=== PATIENT | male | born 1985 | race Caucasian/White ===

== ENCOUNTER 2017-08-26 16:22 | Inpatient (IN) ==
[2017-08-26] MEDS ORDERED: 0.9 % Sodium Chloride 1,000 ML IVC ONE ×2 (17:10→17:48)
[2017-08-26 17:11] LABS: Basophils # 0.1 K/mcL (0.0-0.2); Basophils % 0.6 %; Eosinophils # 0.1 K/mcL (0.0-0.6); Eosinophils % 1.6 %; Hematocrit 44.2 % (37.5-50.1); Hemoglobin 15.7 g/dL (12.9-16.9); Immature Granulocytes % 0.3 % (0-4); Lymphocytes # 2.4 K/mcL (0.6-4.6); Lymphocytes % 26.8 %; Mean Corpuscular HGB Conc 35.5 g/dL (31.6-35.5); Mean Corpuscular Hemoglobin 29.8 pg (28.0-33.3); Mean Platelet Volume 10.4 fL (9.4-12.4); Monocytes # 0.4 K/mcL (0.0-1.3); Monocytes % 4.1 %; Neutrophils # 5.9 K/mcL (1.6-8.9); Platelet Count 317 K/mcL (140-400); Red Blood Count 5.26 M/mcL (4.19-5.50); Red Cell Distribution Width 12.3 % (11.5-14.5); Segmented Neutrophils % 66.6 %
[2017-08-26 17:18] LABS: VBG HCO3 29 mEq/L (21-27); VBG PCO2 45 mmHg (41-51); VBG PH 7.41 pH Units (7.32-7.42); VBG PO2 53 mmHg (25-50)
[2017-08-26 17:23] LABS: BUN/Creatinine Ratio 9 (6-26); Blood Urea Nitrogen 11 mg/dL (8-26); Calcium 9.7 mg/dL (8.6-10.8); Carbon Dioxide 13 mEq/L (19-29); Chloride 90 mEq/L (98-109); Osmolality,Calculated 293 (280-300); Potassium 4.4 mEq/L (3.5-4.5); Sodium 129 mEq/L (136-145); eGFR For African Americans > 60 (> 60); eGFR For Non-African Americans > 60 (> 60)
[2017-08-26 17:26] LABS: Glucose 565 mg/dL (70-99)
[2017-08-26 17:36] LABS: Beta-Hydroxybutyric Acid 0.29 mmol/L (0.02-0.27)
--- NOTE | 2017-08-26 17:54 | Emergency Department Note ---
Disposition Clinical Impression: DKA (diabetic ketoacidoses) Qualifiers: Diabetes mellitus type: type 2 Diabetes mellitus complication detail: without coma Qualified Code(s): E11.10 - Type 2 diabetes mellitus with ketoacidosis without coma Disposition: Admitted As Inpatient Condition: Fair Time of Disposition: 18:43 General Adult HPI - General Chief complaint: ED General Medical Stated complaint: Hyperglycemia Time Seen by Provider: 08/26/17 16:52 Source: patient Mode of arrival: ambulatory Limitations: no limitations Nursing Notes Reviewed: Yes Vital Signs Reviewed: Yes - History of Present Illness HPI Narrative: 32-year-old male presents to the ED complaining of high blood sugar. Patient states he was diagnosed with prediabetes by his primary care physician and they are trying diet and weight loss for treatment. He says that this occurred approximately 2 months ago he has had no problems since then until more recently he says that he has felt a little weird in that his head feels like it spinning he has had blurry vision starting today and he has had increased level of thirst where he is drinking nonstop water for the past week. He also states that he has to urinate about every hour. 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 This is what caused him to come in. He is not having any other complaints or any preceding illnesses. He is not complaining of any nausea or vomiting, abdominal pain, chest pain, shortness of breath, headaches, back pain, neck pain, change in bowel movements, pain or tingling going down the arms or legs or any generalized numbness or fevers. Pain Scale: 0 - Related Data Home Medications Medication Instructions Recorded Confirmed Ibuprofen [Motrin] 200 mg PO Q4HR PRN 08/26/17 08/26/17 Lisinopril [Zestril] 20 mg PO DAILY 08/26/17 08/26/17 Omeprazole [PriLOSEC] 40 mg PO DAILY 08/26/17 08/26/17 Sertraline [Zoloft] 50 mg PO DAILY 08/26/17 08/26/17 Simvastatin [Zocor] 20 mg PO HS 08/26/17 08/26/17 Trazodone HCl 150 mg PO HS 08/26/17 08/26/17 hydrOXYzine HCl [Hydroxyzine HCl] 50 mg PO HS PRN 08/26/17 08/26/17 Allergies Allergy/AdvReac Type Severity Reaction Status Date / Time No Known Allergies Allergy Verified 08/26/17 16:44 Review of Systems: 10 point review of systems done and negative unless otherwise stated in history of present illness. All systems ED: reviewed and negative except as stated. Review of Systems: As Per HPI Past Medical History - Past Medical History Attestation: Yes The following information was validated with the patient. Medical history: Reports: no medical history Psychiatric history: Reports: no psych history - Social History Smoking Status: Never smoker Smokeless Tobacco Status: No Physical Exam - General Limitations: no limitations General appearance: alert, in no apparent distress - Head Head exam: atraumatic, normocephalic, normal inspection - Eye Eye exam: Present: normal appearance, PERRL, EOMI - ENT ENT exam: normal exam, normal oropharynx, mucous membranes moist - Neck Neck exam: Present: normal inspection, full ROM, trachea midline - Chest Chest inspection: Present: normal inspection, symmetric chest wall rise - Respiratory Respiratory exam: Present: normal lung sounds bilaterally - Cardiovascular Cardiovascular exam: Present: regular rate, normal rhythm, normal heart sounds - Abdominal Exam Abdominal exam: Present: soft, Non-Tender. Absent: tenderness, distention, guarding, rebound, rigidity - Extremities Exam Extremities exam: Present: normal inspection, full ROM. Absent: tenderness, pedal edema - Back Exam Back exam: Present: normal inspection, full ROM. Absent: tenderness, CVA tenderness (R), CVA tenderness (L) - Neurological Exam Neurological exam: Present: alert, oriented X3 - Skin Skin exam: Present: warm, dry, intact, normal color Course Course Narrative: 32-year-old male presents to the ED complaining of high blood sugar. He has never been diagnosed with this. He does not take any medications for diabetes. At this time we will do a DKA workup including CBC, BMP, VBG, beta hydroxybutyrate, urinalysis, EKG and troponin. We will get an IV and give him 1 L fluids until labs come back to see if he has been acting Or is acidotic. Patient most likely will be admitted. Vital Signs Temperature 97.5 F L 08/26/17 16:24 Pulse Rate 109 08/26/17 16:24 Respiratory Rate 18 08/26/17 16:24 Blood Pressure 127/79 08/26/17 16:24 O2 Sat by Pulse Oximetry 92 08/26/17 16:24 Temperature 98.4 F 08/26/17 19:36 Pulse Rate 96 08/26/17 18:07 Respiratory Rate 20 08/26/17 19:36 Blood Pressure 137/90 08/26/17 19:36 O2 Sat by Pulse Oximetry 97 08/26/17 18:07 Oxygen Delivery Oxygen Delivery Room Air Medical Decision Making - MDM Narrative Medical decision making narrative: 32 old male presents the ED complaining of high blood. Patient's labs did show an anion gap 23 was no acidosis shown on VBG that he did have a low bicarbonate. Patient is in DKA at this time. He had an elevated blood sugar of 560. Patient is not having any complaints or any other symptoms other than thirst and polyuria. Patient is alert and oriented and doing well. We will give patient 2 L of normal saline lies down here and also 0.1 unit per kilograms of an insulin drip. We will do this until his gap closes. Patient is not hypokalemic at this time there is no need to get potassium. Patient's EKG and troponin were normal. There is no acute EKG findings including T-wave abnormalities. Patient is going to be admitted for DKA I spoke with the hospitalist Juan Pierson who agreed to admit the patient to their service. Patient is admitted in stable condition. - Medical Records Medical records reviewed: Yes I reviewed the patient's medical records. - Lab Data Lab results reviewed: Yes I reviewed the patient's lab results. Result diagrams: 08/26/17 12:02 08/26/17 19:15 Lab Results 08/26/17 08/26/17 08/26/17 Range/Units 12:02 16:25 16:26 WBC 8.9 (4.3-11.1) K/mcL RBC 5.26 (4.19-5.50) M/mcL Hgb 15.7 (12.9-16.9) g/dL Hct 44.2 (37.5-50.1) % MCV 84.0 (83.0-100.0) fL MCH 29.8 (28.0-33.3) pg MCHC 35.5 (31.6-35.5) g/dL RDW 12.3 (11.5-14.5) % Plt Count 317 (140-400) K/mcL MPV 10.4 (9.4-12.4) fL Immature Gran % 0.3 (0-4) % Seg Neutrophils % 66.6 % Lymphocytes % 26.8 % Monocytes % 4.1 % Eosinophils % 1.6 % Basophils % 0.6 % Neutrophils # 5.9 (1.6-8.9) K/mcL Lymphocytes # 2.4 (0.6-4.6) K/mcL Monocytes # 0.4 (0.0-1.3) K/mcL Eosinophils # 0.1 (0.0-0.6) K/mcL Basophils # 0.1 (0.0-0.2) K/mcL VBG pH (7.32-7.42) pH Units VBG pCO2 (41-51) mmHg VBG pO2 (25-50) mmHg VBG HCO3 (21-27) mEq/L Sodium (136-145) mEq/L Potassium (3.5-4.5) mEq/L Chloride (98-109) mEq/L Carbon Dioxide (19-29) mEq/L BUN (8-26) mg/dL Creatinine (0.72-1.25) mg/dL Est GFR ( Amer) (> 60) Est GFR (Non-Af Amer) (> 60) BUN/Creatinine Ratio (6-26) Glucose (70-99) mg/dL POC Glucose > 600 H* 574 H* (58-89) Calculated Osmolality (280-300) Calcium (8.6-10.8) mg/dL Troponin I (0-0.03) ng/mL Beta-Hydroxybutyric Acd (0.02-0.27) mmol/L Urine Color (Yellow) Urine Clarity (Clear) Urine pH (5.0-8.0) pH Units Ur Specific Scott (1.010-1.025) Urine Protein (Neg-Trace) mg/dL Urine Glucose (UA) (Normal) mg/dL Urine Ketones (Negative) mg/dL Urine Blood (Negative) Urine Nitrite (Negative) Urine Bilirubin (Negative) Urine Urobilinogen (Normal) mg/dL Ur Leukocyte Esterase (Negative) Urine Microscopic RBC (0-3) per hpf Urine Microscopic WBC (0-3) per hpf Ur Squamous Epith Cells (None-Few) per lpf Urine Bacteria (None-Few) per hpf Hyaline Casts (None-Few) per lpf Ur Culture Indicated? (NO) 08/26/17 08/26/17 08/26/17 Range/Units 17:02 17:02 17:14 WBC (4.3-11.1) K/mcL RBC (4.19-5.50) M/mcL Hgb (12.9-16.9) g/dL Hct (37.5-50.1) % MCV (83.0-100.0) fL MCH (28.0-33.3) pg MCHC (31.6-35.5) g/dL RDW (11.5-14.5) % Plt Count (140-400) K/mcL MPV (9.4-12.4) fL Immature Gran % (0-4) % Seg Neutrophils % % Lymphocytes % % Monocytes % % Eosinophils % % Basophils % % Neutrophils # (1.6-8.9) K/mcL Lymphocytes # (0.6-4.6) K/mcL Monocytes # (0.0-1.3) K/mcL Eosinophils # (0.0-0.6) K/mcL Basophils # (0.0-0.2) K/mcL VBG pH 7.41 (7.32-7.42) pH Units VBG pCO2 45 (41-51) mmHg VBG pO2 53 H (25-50) mmHg VBG HCO3 29 H (21-27) mEq/L Sodium 129 L (136-145) mEq/L Potassium 4.4 (3.5-4.5) mEq/L Chloride 90 L (98-109) mEq/L Carbon Dioxide 13 L (19-29) mEq/L BUN 11 (8-26) mg/dL Creatinine 1.18 (0.72-1.25) mg/dL Est GFR ( Amer) > 60 (> 60) Est GFR (Non-Af Amer) > 60 (> 60) BUN/Creatinine Ratio 9 (6-26) Glucose 565 H* (70-99) mg/dL POC Glucose (58-89) Calculated Osmolality 293 (280-300) Calcium 9.7 (8.6-10.8) mg/dL Troponin I 0.02 (0-0.03) ng/mL Beta-Hydroxybutyric Acd 0.29 H (0.02-0.27) mmol/L Urine Color (Yellow) Urine Clarity (Clear) Urine pH (5.0-8.0) pH Units Ur Specific Scott (1.010-1.025) Urine Protein (Neg-Trace) mg/dL Urine Glucose (UA) (Normal) mg/dL Urine Ketones (Negative) mg/dL Urine Blood (Negative) Urine Nitrite (Negative) Urine Bilirubin (Negative) Urine Urobilinogen (Normal) mg/dL Ur Leukocyte Esterase (Negative) Urine Microscopic RBC (0-3) per hpf Urine Microscopic WBC (0-3) per hpf Ur Squamous Epith Cells (None-Few) per lpf Urine Bacteria (None-Few) per hpf Hyaline Casts (None-Few) per lpf Ur Culture Indicated? (NO) 08/26/17 08/26/17 Range/Units 17:43 19:15 WBC (4.3-11.1) K/mcL RBC (4.19-5.50) M/mcL Hgb (12.9-16.9) g/dL Hct (37.5-50.1) % MCV (83.0-100.0) fL MCH (28.0-33.3) pg MCHC (31.6-35.5) g/dL RDW (11.5-14.5) % Plt Count (140-400) K/mcL MPV (9.4-12.4) fL Immature Gran % (0-4) % Seg Neutrophils % % Lymphocytes % % Monocytes % % Eosinophils % % Basophils % % Neutrophils # (1.6-8.9) K/mcL Lymphocytes # (0.6-4.6) K/mcL Monocytes # (0.0-1.3) K/mcL Eosinophils # (0.0-0.6) K/mcL Basophils # (0.0-0.2) K/mcL VBG pH (7.32-7.42) pH Units VBG pCO2 (41-51) mmHg VBG pO2 (25-50) mmHg VBG HCO3 (21-27) mEq/L Sodium 131 L (136-145) mEq/L Potassium 4.1 (3.5-4.5) mEq/L Chloride 93 L (98-109) mEq/L Carbon Dioxide 18 L (19-29) mEq/L BUN 11 (8-26) mg/dL Creatinine 1.11 (0.72-1.25) mg/dL Est GFR ( Amer) > 60 (> 60) Est GFR (Non-Af Amer) > 60 (> 60) BUN/Creatinine Ratio 10 (6-26) Glucose 448 H (70-99) mg/dL POC Glucose (58-89) Calculated Osmolality 291 (280-300) Calcium 9.3 (8.6-10.8) mg/dL Troponin I (0-0.03) ng/mL Beta-Hydroxybutyric Acd (0.02-0.27) mmol/L Urine Color Yellow (Yellow) Urine Clarity Clear (Clear) Urine pH 6.0 (5.0-8.0) pH Units Ur Specific Scott > 1.030 H (1.010-1.025) Urine Protein Trace (Neg-Trace) mg/dL Urine Glucose (UA) >=1000 H (Normal) mg/dL Urine Ketones Negative (Negative) mg/dL Urine Blood Trace H (Negative) Urine Nitrite Negative (Negative) Urine Bilirubin Negative (Negative) Urine Urobilinogen Normal (Normal) mg/dL Ur Leukocyte Esterase Negative (Negative) Urine Microscopic RBC 0-3 (0-3) per hpf Urine Microscopic WBC 0-3 (0-3) per hpf Ur Squamous Epith Cells None Seen (None-Few) per lpf Urine Bacteria None Seen (None-Few) per hpf Hyaline Casts None Seen (None-Few) per lpf Ur Culture Indicated? NO (NO) - Radiology Data Radiology results reviewed: Yes I reviewed the patient's radiology results. - EKG Data EKG #1 EKG attestation: Yes I reviewed and interpreted this EKG. EKG results narrative: EKG done at 1721 shows sinus tachycardia at a rate of 107, UT interval 152 QRS 103, QTc 386, normal axis. There is a right bundle branch block no acute ST changes, no acute T-wave abnormalities, no signs of heart hypertrophy, no other heart blocks, no signs of WPW/Brugada syndrome. There is no old EKG to compare at this time. Attestation Statement - Attestation Attestation: I examined this patient and my medical decision-making was reviewed with the Resident Physician, Dr. Patel. I agree with the documented findings, disposition and treatment plan as described except to the extent set forth below. Patient is a 32-year-old white male who presents to the emergency department brought by his with reports of an elevated blood sugar. Patient does not have a history of diabetes but reports that he was diagnosed with prediabetes by his family practice doctor and recommended diet modifications and exercise. Patient states over the last 3-4 days he has been having polyuria, polydipsia, strange odor to his urine and today some blurred vision and so his who is a nurse did an Accu-Chek which just read high and she brought him here for evaluation. Patient denies any chest pain pressure or heaviness, no shortness of breath, no syncope, no headaches, no other associated symptoms. She has had no nausea or vomiting. Patient denies any recent upper respiratory infection cold or cough. Patient's physical exam findings as documented. Patient had full laboratory evaluation including beta hydroxybutyrate and VBG. Labs consistent with a gap metabolic acidosis caused by DKA and hyperglycemia. Patient was started on IV fluids, insulin drip, and repeat basic metabolic panel shows improvement from his labs on arrival. Case was discussed with the hospitalist to accept the patient for admission.
[2017-08-26 18:00] LABS: Bilirubin,Urine Negative (Negative); Blood,Urine Trace (Negative); Clarity,Urine Clear (Clear); Color,Urine Yellow (Yellow); Glucose,Urine (UA) >=1000 mg/dL (Normal); Ketones,Urine Negative (Negative); Leukocyte Esterase,Urine Negative (Negative); Nitrite,Urine Negative (Negative); Protein,Urine Trace mg/dL (Neg-Trace); Specific Gravity,Urine > 1.030 (1.010-1.025); Urobilinogen,Urine Normal (Normal)
[2017-08-26 18:18] LABS: Bacteria,Urine None Seen per hpf (None-Few); Hyaline Casts,Urine None Seen per lpf (None-Few); RBC,Urine 0-3 per hpf (0-3); Squamous Epithelial Cell,Urine None Seen per lpf (None-Few); WBC,Urine 0-3 per hpf (0-3)
[2017-08-26] MEDS: Insulin Human Regular 100 UNIT in 0.9 % Sodium Chloride 100 ML IVC SCH (19:23)
[2017-08-26 19:56] LABS: BUN/Creatinine Ratio 10 (6-26); Blood Urea Nitrogen 11 mg/dL (8-26); Calcium 9.3 mg/dL (8.6-10.8); Carbon Dioxide 18 mEq/L (19-29); Chloride 93 mEq/L (98-109); Osmolality,Calculated 291 (280-300); Potassium 4.1 mEq/L (3.5-4.5); Sodium 131 mEq/L (136-145); eGFR For African Americans > 60 (> 60); eGFR For Non-African Americans > 60 (> 60)
[2017-08-26 19:59] LABS: Glucose 448 mg/dL (70-99)
[2017-08-26] MEDS ORDERED: *HR* Dextrose 50 % in Water (Syg) 50 ML SYRINGE IVP PRN ×2 (20:15→21:12)
[2017-08-26] MEDS ORDERED: Insulin Regular, Human 100 UNIT/ML IV PRN ×2 (20:15→21:12)
[2017-08-26] MEDS ORDERED: *HR* Morphine 2 MG/ML SYRINGE IVP PRN (20:19)
[2017-08-26] MEDS ORDERED: Naloxone 0.4 MG/ML INJ IVP PRN (20:19)
[2017-08-26] MEDS ORDERED: Ondansetron 4 MG/2 ML VIAL IVP PRN (20:19)
[2017-08-26 20:55] LABS: Prothrombin Time 11.1 Seconds (9.4-12.1)
[2017-08-26] MEDS: Acetaminophen 325 MG TABLET PO PRN (21:04)
[2017-08-26] MEDS ORDERED: Insulin Human Regular 10 UNIT in 0.9 % Sodium Chloride 10 ML IV PRN (21:06)
--- NOTE | 2017-08-26 21:10 | Internal Med History&Physical ---
Date of Encounter: 08/26/17 Time of Encounter: 20:45 Assessment and Plan (1) DKA (diabetic ketoacidosis) Current visit: Yes Status: Acute Diabetic ketoacidosis without coma - likely type 1 diabetes mellitus, hyperglycemia - newly diagnosed Continue IV insulin, IV fluids Follow DKA protocol and replace electrolytes as needed Continue insulin sliding scale when anion gap is closed and DKA has resolved EKG - sinus tachycardia Cardiac telemetry, pulse ox, strict intake and output, monitor closely, labs every 2 hours until anion gap is closed Qualifiers: Diabetes mellitus type: type 1 Diabetes mellitus complication detail: without coma Qualified Code(s): E10.10 - Type 1 diabetes mellitus with ketoacidosis without coma (2) Hypertension Current visit: Yes Status: Chronic Essential hypertension, controlled, monitor Continue home dose of Zestril Qualifiers: Hypertension type: essential hypertension Qualified Code(s): I10 - Essential (primary) hypertension (3) TALON (obstructive sleep apnea) Current visit: Yes Status: Acute TALON, stable - continue CPAP at night (4) Hyperlipidemia Current visit: Yes Status: Chronic Continue home dose of Zocor Qualifiers: Hyperlipidemia type: unspecified Qualified Code(s): E78.5 - Hyperlipidemia , unspecified (5) Morbid obesity Current visit: Yes Status: Acute Morbid obesity with BMI 52.2 Advised lifestyle modification (6) Depression Current visit: Yes Status: Acute Chronic major depression, stable Continue home dose of Trazodone, Zoloft Qualifiers: Depression Type: major depressive disorder Major depression recurrence: recurrent Active/Remission status: currently active Major depression episode severity: mild Qualified Code(s): F33.0 - Major depressive disorder, recurrent, mild (7) DVT prophylaxis Current visit: Yes Status: Acute Heparin subcutaneous Internal Medicine - H&P: HPI Chief complaint: Generalized weakness Admitted From: Emergency Dept Plans for Post Hospital Care: Home History of present illness: Mr. Daiz is a 32 year old male with past medical history of depression, TALON and hyperlipidemia. Patient presented to the ED with complaints of generalized weakness. Examined in the room. Patient is awake and alert. Able to provide all history. No present bedside. Patient states he developed generalized weakness and fatigue about 2 days ago. Symptoms are gradually worsening. He also complains of more thirst and states he has been drinking more water than usual. He has been diagnosed with prediabetes recently and was advised to follow a diabetic diet and advised to exercise. Patient also complains of increased frequency of urination. He apparently checked his blood glucose today at his 's workplace, and the glucometer read as "high". Patient then decided to come into the ED. He denies chest pain or shortness of breath. Denies palpitations or vomiting or diarrhea or fever. He also complains of generalized weakness and fatigue. No aggravating or alleviating factors. No other associated symptoms. No other acute complaints. Initial workup in the ED significant for hyperglycemia. Patient does have ketonemia. Anion gap is elevated. He has been started on IV heparin as per protocol. Patient is being admitted for DKA. Patient has been explained about his condition and plan of care in detail. He understood and agreed. No unanswered questions. CODE STATUS full code. Past Med Surg Social Fam HX - Past Medical History Medical history: no medical history Psychiatric history: no psych history - Social History Smoking Status: Never smoker Smokeless Tobacco Status: No - Family History Paternal Grandmother Hx Family Cardiac Disorders: Yes (CHF) Internal Medicine - H&P: Meds Ibuprofen [Motrin] 200 mg PO Q4HR PRN 08/26/17 [History] Lisinopril [Zestril] 20 mg PO DAILY 08/26/17 [History] Omeprazole [PriLOSEC] 40 mg PO DAILY 08/26/17 [History] Sertraline [Zoloft] 50 mg PO DAILY 08/26/17 [History] Simvastatin [Zocor] 20 mg PO HS 08/26/17 [History] Trazodone HCl 150 mg PO HS 08/26/17 [History] hydrOXYzine HCl [Hydroxyzine HCl] 50 mg PO HS PRN 08/26/17 [History] 3 Allergy/AdvReac Type Severity Reaction Status Date / Time No Known Allergies Allergy Verified 08/26/17 16:44 All Systems PM: A 10-system review of systems was performed and is negative for pertinent findings except as documented above in the HPI. - Constitutional Constitutional: fatigue, weakness, no fever(s) - EENT Eyes: blurry vision - Cardiovascular Cardiovascular ROS IM: no chest pain, no diaphoresis, no dyspnea, no orthopnea, no palpitations, no syncope - Respiratory Respiratory: no cough, no dyspnea, no hemoptysis, no dyspnea on exertion, no wheezing, no chest congestion - Gastrointestinal Gastrointestinal: no abdominal pain, no bloating, no cramping, no diarrhea, no hematemesis, no hematochezia, no nausea, no vomiting - Genitourinary Genitourinary ROS male: urinary frequency, no dysuria - Neurological Neurological ROS: no abnormal gait, no confusion, no convulsions, no dizziness, no focal weakness, no loss of vision, no numbness, no tingling - Constitutional Vitals: Temp Pulse Resp BP Pulse Ox 98.2 F 99 16 144/92 94 08/26/17 20:41 08/26/17 20:41 08/26/17 20:41 08/26/17 20:41 08/26/17 20:41 General appearance: Present: cooperative, A&O X 3, morbidly obese, pleasant, no acute distress, answers questions appropriately - Head Head exam: Present: atraumatic - Eye Eye exam: Present: EOMI - ENT ENT exam: Present: mucous membranes dry - Respiratory Respiratory exam: Present: CTAB. Absent: accessory muscle use, chest wall tenderness, rales, respiratory distress, rhonchi, wheezes, tachypnea - Cardiovascular Cardiovascular exam: Present: RRR, +S1, +S2 - GI/Abdominal GI/Abdominal exam: Present: soft (Obese). Absent: distended, firm, guarding, tenderness - Extremities Exam Extremities exam: Present: pedal edema (Bilateral 2+ lower leg edema), radial pulses palpable and symmetrical. Absent: calf tenderness, cyanotic - Neurological Exam Neurological exam: Present: alert, oriented X3, no focal deficits. Absent: facial droop, speech deficit Internal Med - H&P Results - Labs CBC & Chem 7: 08/27/17 02:45 08/27/17 02:45
[2017-08-26] MEDS ORDERED: D5% in 0.45% NACL w KCl 20 MEQ/1,000 ML MLS IVC PRN (21:12)
[2017-08-26] MEDS ORDERED: D5% in 0.45% NACL 1,000 ML IVC PRN (21:12)
[2017-08-26] MEDS ORDERED: 0.9 % Sodium Chloride 1,000 ML IVC SCH (21:15)
[2017-08-26] MEDS ORDERED: Insulin Human Regular 100 UNIT in 0.9 % Sodium Chloride 100 ML IVC SCH (21:15)
[2017-08-26] MEDS ORDERED: 0.9 % Sodium Chloride 1,000 ML ONE (21:29)
[2017-08-26] MEDS ORDERED: Insulin Human Regular 5 UNIT in 0.9 % Sodium Chloride 10 ML IV PRN (21:30)
[2017-08-26] MEDS: 0.9 % Sodium Chloride w KCl 20 MEQ/1,000 ML MLS IVC SCH ×2 (21:39→23:45)
[2017-08-26 22:54] LABS: BUN/Creatinine Ratio 13 (6-26); Blood Urea Nitrogen 11 mg/dL (8-26); Calcium 8.6 mg/dL (8.6-10.8); Carbon Dioxide 14 mEq/L (19-29); Chloride 98 mEq/L (98-109); Glucose 269 mg/dL (70-99); Osmolality,Calculated 289 (280-300); Potassium 3.5 mEq/L (3.5-4.5); Sodium 135 mEq/L (136-145); eGFR For African Americans > 60 (> 60); eGFR For Non-African Americans > 60 (> 60)
[2017-08-26] MEDS ORDERED: Saline Nasal Spray 44 ML BOTTLE NS PRN (23:38)
[2017-08-26] MEDS: traZODone 50 MG TABLET PO SCH (23:46)
[2017-08-26] MEDS: *HR* Heparin 5,000 UNIT/ML VIAL SQ SCH (23:52)
[2017-08-27 00:38] LABS: BUN/Creatinine Ratio 12 (6-26); Blood Urea Nitrogen 10 mg/dL (8-26); Calcium 8.7 mg/dL (8.6-10.8); Carbon Dioxide 17 mEq/L (19-29); Chloride 101 mEq/L (98-109); Glucose 222 mg/dL (70-99); Osmolality,Calculated 284 (280-300); eGFR For African Americans > 60 (> 60); eGFR For Non-African Americans > 60 (> 60)
[2017-08-27 00:39] LABS: Potassium 3.6 mEq/L (3.5-4.5); Sodium 134 mEq/L (136-145)
[2017-08-27] MEDS: D5% in 0.45% NACL w KCl 20 MEQ/1,000 ML MLS IVC PRN ×2 (02:15→06:26)
[2017-08-27] MEDS: Insulin Human Regular 100 UNIT in 0.9 % Sodium Chloride 100 ML IVC SCH ×2 (02:48→06:39)
[2017-08-27 02:55] LABS: Basophils % 0.5 %; Eosinophils # 0.2 K/mcL (0.0-0.6); Eosinophils % 2.9 %; Hematocrit 39.3 % (37.5-50.1); Immature Granulocytes % 0.5 % (0-4); Lymphocytes # 2.9 K/mcL (0.6-4.6); Lymphocytes % 39.2 %; Mean Corpuscular HGB Conc 33.8 g/dL (31.6-35.5); Mean Corpuscular Hemoglobin 29.2 pg (28.0-33.3); Mean Corpuscular Volume 86.2 fL (83.0-100.0); Mean Platelet Volume 10.4 fL (9.4-12.4); Monocytes # 0.4 K/mcL (0.0-1.3); Monocytes % 4.9 %; Neutrophils # 3.9 K/mcL (1.6-8.9); Nucleated Red Blood Cells 0.3 /100 WBC (0); Platelet Count 247 K/mcL (140-400); Red Blood Count 4.56 M/mcL (4.19-5.50); Red Cell Distribution Width 12.6 % (11.5-14.5)
[2017-08-27 03:00] LABS: Hemoglobin 13.3 g/dL (12.9-16.9)
[2017-08-27 03:05] LABS: BUN/Creatinine Ratio 13 (6-26); Blood Urea Nitrogen 11 mg/dL (8-26); Calcium 8.3 mg/dL (8.6-10.8); Carbon Dioxide 18 mEq/L (19-29); Chloride 102 mEq/L (98-109); Glucose 195 mg/dL (70-99); Magnesium 2.3 mg/dL (1.6-2.6); Osmolality,Calculated 289 (280-300); Phosphorous 2.8 mg/dL (2.3-4.7); eGFR For African Americans > 60 (> 60); eGFR For Non-African Americans > 60 (> 60)
[2017-08-27 03:08] LABS: Hemoglobin A1C 11.3 %; Sodium 137 mEq/L (136-145)
[2017-08-27 03:09] LABS: Cholesterol 413 mg/dL (< 200); Potassium 3.4 mEq/L (3.5-4.5)
[2017-08-27 04:12] LABS: Triglycerides 2951 mg/dL (< 150)
[2017-08-27 05:15] LABS: BUN/Creatinine Ratio 15 (6-26); Blood Urea Nitrogen 12 mg/dL (8-26); Calcium 8.3 mg/dL (8.6-10.8); Carbon Dioxide 16 mEq/L (19-29); Chloride 104 mEq/L (98-109); Glucose 185 mg/dL (70-99); Lipase 33 Units/L (8-78); Osmolality,Calculated 289 (280-300); eGFR For African Americans > 60 (> 60); eGFR For Non-African Americans > 60 (> 60)
[2017-08-27 05:18] LABS: Sodium 137 mEq/L (136-145)
[2017-08-27 05:19] LABS: Potassium 3.8 mEq/L (3.5-4.5)
[2017-08-27] MEDS: 0.9 % Sodium Chloride 1,000 ML IVC SCH ×5 (07:16→08:13)
[2017-08-27 07:29] LABS: BUN/Creatinine Ratio 15 (6-26); Blood Urea Nitrogen 12 mg/dL (8-26); Calcium 8.3 mg/dL (8.6-10.8); Carbon Dioxide 13 mEq/L (19-29); Chloride 105 mEq/L (98-109); Glucose 149 mg/dL (70-99); Osmolality,Calculated 283 (280-300); Sodium 135 mEq/L (136-145); eGFR For African Americans > 60 (> 60); eGFR For Non-African Americans > 60 (> 60)
[2017-08-27] MEDS: *HR* Heparin 5,000 UNIT/ML VIAL SQ SCH ×2 (08:13→16:06)
[2017-08-27] MEDS: Acetaminophen 325 MG TABLET PO PRN (08:20)
[2017-08-27] MEDS: Lisinopril 20 MG TABLET PO SCH (09:09)
[2017-08-27] MEDS ORDERED: Insulin DETEMIR 100 UNIT/ML X5UNITS SQ ONE (09:38)
[2017-08-27] MEDS ORDERED: D5% in Water 1,000 ML IVC PRN (09:51)
[2017-08-27] MEDS ORDERED: Dextrose Gel 15 GM PO PRN ×2 (09:51)
[2017-08-27] MEDS ORDERED: *HR* Dextrose 50 % in Water (Syg) 50 ML SYRINGE IVP PRN (09:51)
--- NOTE | 2017-08-27 09:54 | Internal Med Progress Note ---
Date of Encounter: 08/27/17 Time of Encounter: 09:54 - Assessment and plan (1) DKA (diabetic ketoacidoses) Current Visit: Yes Status: Acute Assessment and plan: Pt now has closed anion gap. Insulin drip stopped and Levimir begun. SSI ordered. Pt was not on any meds for diabetes when admitted. HgbA1C greater than 11. Anticipate discharging on insulin with follow up with PCP for any changes. HCO3 still low this AM. pH was normal on VBG last night. Will recheck chemistry later today. Qualifiers: Diabetes mellitus type: type 2 Diabetes mellitus complication detail: without coma Qualified Code(s): E11.10 - Type 2 diabetes mellitus with ketoacidosis without coma (2) Hyperlipidemia Current Visit: Yes Status: Chronic Assessment and plan: Pt has cholesterol greater than 400 and triglycerides nearly 3000. No evidence of pancreatitis. Has been switched to Atorvastatin and Gemfibrozil added. Recheck of labs later today. As he does not have pancreatitis the insulin drip has been stopped as AG is now normal. Will need aggressive diet management as well as medications. Qualifiers: Hyperlipidemia type: mixed hyperlipidemia Qualified Code(s): E78.2 - Mixed hyperlipidemia (3) Cephalgia Current Visit: Yes Status: Acute Assessment and plan: Has headache in AM when waking. Most likely related to TALON. PRN Motrin helps. Qualifiers: Headache type: other headache syndrome Qualified Code(s): G44.89 - Other headache syndrome (4) Hypertension Current Visit: Yes Status: Chronic Assessment and plan: Controlled at this time. Currently on Lisinopril and tolerating it. Qualifiers: Hypertension type: essential hypertension Qualified Code(s): I10 - Essential (primary) hypertension (5) Depression Current Visit: Yes Status: Chronic Assessment and plan: Continue home meds at this time. Qualifiers: Depression Type: major depressive disorder Major depression recurrence: recurrent Active/Remission status: currently active Major depression episode severity: mild Qualified Code(s): F33.0 - Major depressive disorder, recurrent, mild (6) TALON (obstructive sleep apnea) Current Visit: Yes Status: Suspected Assessment and plan: Will do overnight bipap qualification and repeat ABG in AM. May only need CPAP so sleep study may need to be arranged. (7) Morbid obesity Current Visit: Yes Status: Chronic Assessment and plan: Counselling. - Subjective Interval history: Mr Diaz is currently admitted for acute DKA and hypertriglyceridemia. He remains moderate to high risk due to risk for recurrence of acidosis and pancreatitis. Mr Diaz has a significant headache. He says it is in the back of his head and occurs commonly when he wakes in the morning. Feels hungry now. No abd pain. No fever or chills. He was not on insulin at home. No diagnosed history of TALON though have noticed some desaturation when sleeping. No CP or SOB at this time. - Constitutional Vitals: Temp Pulse Resp BP Pulse Ox 98.0 F 81 16 138/88 98 08/27/17 07:11 08/27/17 07:11 08/27/17 07:11 08/27/17 07:11 08/27/17 07:11 General appearance: Present: cooperative, A&O X 3, morbidly obese, pleasant, answers questions appropriately - Head Head exam: Present: atraumatic, normocephalic - Eye Eye exam: Present: EOMI, conjuntiva pink - ENT ENT exam: Present: mucous membranes dry - Respiratory Respiratory exam: Present: decreased breath sounds, CTAB. Absent: rales, rhonchi, wheezes - Cardiovascular Cardiovascular exam: Present: distant heart sounds, RRR. Absent: systolic murmur, tachycardia - GI/Abdominal GI/Abdominal exam: Present: normal bowel sounds, soft. Absent: tenderness - Extremities Exam Extremities exam: Present: normal inspection, warm. Absent: pedal edema, tenderness - Neurological Exam Neurological exam: Present: alert, oriented X3, no focal deficits - Psychiatric Psychiatric exam: Present: normal affect, normal mood - Skin Skin exam: Present: dry, warm. Absent: rash Internal Medicine: Result - Labs CBC & Chem 7: 08/27/17 02:45 08/27/17 07:03 Labs: Short CBC 08/27/17 Range/Units 02:45 WBC 7.5 (4.3-11.1) K/mcL Hgb 13.3 D (12.9-16.9) g/dL Hct 39.3 (37.5-50.1) % Plt Count 247 (140-400) K/mcL Neutrophils # 3.9 (1.6-8.9) K/mcL BMP 08/26/17 08/27/17 08/27/17 22:17 00:20 02:45 Sodium 135 L 134 L 137 Potassium 3.5 3.6 3.4 L Chloride 98 101 102 Carbon Dioxide 14 L 17 L 18 L BUN 11 10 11 Creatinine 0.88 0.85 0.82 Glucose 269 H 222 H 195 H Calcium 8.6 8.7 8.3 L 08/27/17 08/27/17 04:54 07:03 Sodium 137 135 L Potassium 3.8 4.0 Chloride 104 105 Carbon Dioxide 16 L 13 L BUN 12 12 Creatinine 0.82 0.78 Glucose 185 H 149 H Calcium 8.3 L 8.3 L - ABG Interpretation ABG results: PT/INR, D-dimer PT 11.1 Seconds (9.4-12.1) 08/26/17 12:02 Consult Discharge Plan - Plan Referrals: Pattie Hunter, WALTER [Primary Care Provider] -
[2017-08-27] MEDS: Ibuprofen 400 MG TABLET PO PRN ×2 (09:58→17:44)
[2017-08-27] MEDS: Insulin LISPRO 300 UNITS/3 ML VIAL SQ SCH ×3 (11:20→20:49)
[2017-08-27 12:39] LABS: Cholesterol 379 mg/dL (< 200)
[2017-08-27 12:40] LABS: Triglycerides 2348 mg/dL (< 150)
[2017-08-27 15:12] LABS: BUN/Creatinine Ratio 13 (6-26); Blood Urea Nitrogen 11 mg/dL (8-26); Calcium 8.3 mg/dL (8.6-10.8); Carbon Dioxide 17 mEq/L (19-29); Chloride 102 mEq/L (98-109); Glucose 293 mg/dL (70-99); Osmolality,Calculated 288 (280-300); Potassium 4.3 mEq/L (3.5-4.5); Sodium 134 mEq/L (136-145); eGFR For African Americans > 60 (> 60); eGFR For Non-African Americans > 60 (> 60)
[2017-08-27] MEDS: traZODone 50 MG TABLET PO SCH (20:49)
[2017-08-28] MEDS: *HR* Heparin 5,000 UNIT/ML VIAL SQ SCH ×3 (01:23→17:13)
[2017-08-28 02:57] LABS: Hematocrit 39.8 % (37.5-50.1); Hemoglobin 13.4 g/dL (12.9-16.9); Mean Corpuscular HGB Conc 33.7 g/dL (31.6-35.5); Mean Corpuscular Hemoglobin 29.6 pg (28.0-33.3); Mean Corpuscular Volume 87.9 fL (83.0-100.0); Mean Platelet Volume 10.5 fL (9.4-12.4); Platelet Count 235 K/mcL (140-400); Red Blood Count 4.53 M/mcL (4.19-5.50); Red Cell Distribution Width 12.6 % (11.5-14.5)
[2017-08-28 03:13] LABS: Alanine Aminotransferase 47 Units/L (0-55); Albumin 3.1 g/dL (3.5-5.0); Albumin/Globulin Ratio 0.8 (1.1-2.2); Alkaline Phosphatase 82 Units/L (38-126); Aspartate Amino Transferase 32 Units/L (5-34); BUN/Creatinine Ratio 11 (6-26); Bilirubin,Total 0.3 mg/dL (0.2-1.2); Blood Urea Nitrogen 10 mg/dL (8-26); Calcium 8.7 mg/dL (8.6-10.8); Carbon Dioxide 18 mEq/L (19-29); Chloride 100 mEq/L (98-109); Globulin 3.9 g/dL (2.4-3.5); Glucose 389 mg/dL (70-99); Magnesium 2.2 mg/dL (1.6-2.6); Osmolality,Calculated 289 (280-300); Potassium 4.4 mEq/L (3.5-4.5); eGFR For African Americans > 60 (> 60); eGFR For Non-African Americans > 60 (> 60)
[2017-08-28 03:14] LABS: Sodium 132 mEq/L (136-145)
[2017-08-28] MEDS: Ibuprofen 400 MG TABLET PO PRN ×2 (04:24→18:23)
[2017-08-28 04:52] LABS: ABG Base Excess 0 mEq/L (-2 to 3); ABG HCO3 28 mEq/L (21-27); ABG Oxygen Saturation 96 % (95-98); ABG PCO2 55 mmHg (35-45); ABG PH 7.31 pH Units (7.32-7.45); ABG PO2 92 mmHg (85-104); ABG TCO2 30 mEq/L (20-26)
[2017-08-28] MEDS: Lisinopril 20 MG TABLET PO SCH (08:10)
[2017-08-28] MEDS: Insulin LISPRO 300 UNITS/3 ML VIAL SQ SCH ×4 (08:12→20:42)
--- NOTE | 2017-08-28 08:34 | Internal Med Progress Note ---
Date of Encounter: 08/28/17 Time of Encounter: 08:25 - Assessment and plan (1) DKA (diabetic ketoacidoses) Current Visit: Yes Status: Acute Assessment and plan: Blood sugar continues to fluctuate. HgbA1C over 11%. Will try to start Metformin and increase Levimir. Will monitor blood sugars again tonight and decide on a regimen for discharg tomorrow. Qualifiers: Diabetes mellitus type: type 2 Diabetes mellitus complication detail: without coma Qualified Code(s): E11.10 - Type 2 diabetes mellitus with ketoacidosis without coma (2) Hyperlipidemia Current Visit: Yes Status: Chronic Assessment and plan: Needs to have aggressive diet management. Triglycerides upper 1999. On Atorvastatin and Lopid at this time. Qualifiers: Hyperlipidemia type: mixed hyperlipidemia Qualified Code(s): E78.2 - Mixed hyperlipidemia (3) Cephalgia Current Visit: Yes Status: Resolved Assessment and plan: Has headache in AM when waking. Most likely related to TALON. Will continue PRN Motrin. Qualifiers: Headache type: other headache syndrome Qualified Code(s): G44.89 - Other headache syndrome (4) Hypertension Current Visit: Yes Status: Chronic Assessment and plan: Controlled at this time. Currently on Lisinopril and tolerating it. Qualifiers: Hypertension type: essential hypertension Qualified Code(s): I10 - Essential (primary) hypertension (5) Depression Current Visit: Yes Status: Chronic Assessment and plan: Continue home meds at this time. Qualifiers: Depression Type: major depressive disorder Major depression recurrence: recurrent Active/Remission status: currently active Major depression episode severity: mild Qualified Code(s): F33.0 - Major depressive disorder, recurrent, mild (6) TALON (obstructive sleep apnea) Current Visit: Yes Status: Suspected Assessment and plan: Has CPAP at home currently. CO2 was 55 on ABG this AM. Will discuss with case management tomorrow. (7) Morbid obesity Current Visit: Yes Status: Chronic Assessment and plan: Counselling. - Subjective Interval history: Mr Diaz is currently admitted for acute DKA and hypertriglyceridemia. He remains moderate to high risk due to risk for recurrence of acidosis and pancreatitis. Mr Diaz is currently eating breakfast. His blood sugar is still fluctuating and his bicarb is still low. No anion gap. Had study for bipap last night. No fever or chills. Headache has improved with treatment. - Constitutional Vitals: Temp Pulse Resp BP Pulse Ox 98.0 F 81 18 132/84 94 08/28/17 07:15 08/28/17 07:15 08/28/17 07:15 08/28/17 07:15 08/28/17 07:15 General appearance: Present: cooperative, A&O X 3, morbidly obese, pleasant, answers questions appropriately - Head Head exam: Present: atraumatic, normocephalic - Eye Eye exam: Present: EOMI, conjuntiva pink - ENT ENT exam: Present: mucous membranes moist - Respiratory Respiratory exam: Present: decreased breath sounds, CTAB - Cardiovascular Cardiovascular exam: Present: RRR. Absent: systolic murmur, tachycardia - GI/Abdominal GI/Abdominal exam: Present: soft. Absent: tenderness - Extremities Exam Extremities exam: Present: warm. Absent: tenderness - Neurological Exam Neurological exam: Present: alert, oriented X3, no focal deficits - Skin Skin exam: Present: dry, intact, warm. Absent: rash Internal Medicine: Result - Labs CBC & Chem 7: 08/28/17 02:41 08/28/17 02:41 Labs: Short CBC 08/28/17 Range/Units 02:41 WBC 5.9 (4.3-11.1) K/mcL Hgb 13.4 (12.9-16.9) g/dL Hct 39.8 (37.5-50.1) % Plt Count 235 (140-400) K/mcL BMP 08/27/17 08/28/17 11:58 02:41 Sodium 134 L 132 L Potassium 4.3 4.4 Chloride 102 100 Carbon Dioxide 17 L 18 L BUN 11 10 Creatinine 0.85 0.91 Glucose 293 H 389 H Calcium 8.3 L 8.7 Liver Function 08/28/17 Range/Units 02:41 Total Bilirubin 0.3 (0.2-1.2) mg/dL AST 32 (5-34) Units/L ALT 47 (0-55) Units/L Alkaline Phosphatase 82 (38-126) Units/L Albumin 3.1 L (3.5-5.0) g/dL - ABG Interpretation ABG results: ABG ABG pH 7.31 pH Units (7.32-7.45) L 08/28/17 04:49 ABG pCO2 55 mmHg (35-45) H 08/28/17 04:49 ABG pO2 92 mmHg (85-104) 08/28/17 04:49 ABG O2 Saturation 96 % (95-98) 08/28/17 04:49 PT/INR, D-dimer PT 11.1 Seconds (9.4-12.1) 08/26/17 12:02 Consult Discharge Plan - Plan Referrals: Pattie Hunter, WALTER [Primary Care Provider] -
[2017-08-28] MEDS ORDERED: Insulin DETEMIR 100 UNIT/ML X5UNITS SQ STA (08:37)
[2017-08-28] MEDS: *HR* Metformin 500 MG TABLET PO SCH (17:13)
[2017-08-28] MEDS: traZODone 50 MG TABLET PO SCH (20:41)
[2017-08-29] MEDS: *HR* Heparin 5,000 UNIT/ML VIAL SQ SCH ×4 (00:46→23:17)
--- NOTE | 2017-08-29 02:18 | Electrocardiograph Report ---
[place] [id number] Test Date: 2017-08-26 Pat Name: Bob Diaz Department: 103 Room: 2N13 Gender: M [employer]S Soccer Coach: TMR : 1985 Requested By: Everton Sanchez Order Number: [id number] Reading MD: Tyree Comer MD Measurements Intervals Krypton Rate: 107 P: 32 GA: 152 QRS: 19 QRSD: 103 T: 21 QT: 323 QTc: 386 Interpretive Statements SINUS TACHYCARDIA INDETERMINATE AXIS INCOMPLETE RIGHT BUNDLE BRANCH BLOCK Poor R wave progression Electronically Signed On 08-29-2017 2:15:50 EST by Tyree Comer MD
[2017-08-29] MEDS: Lisinopril 20 MG TABLET PO SCH (08:26)
[2017-08-29] MEDS: *HR* Metformin 500 MG TABLET PO SCH (08:26)
[2017-08-29] MEDS: Insulin LISPRO 300 UNITS/3 ML VIAL SQ SCH ×2 (08:28→11:18)
--- NOTE | 2017-08-29 08:39 | Internal Med Progress Note ---
<Juan Pena - Last Filed: 08/29/17 16:13> Date of Encounter: 08/29/17 Time of Encounter: 08:39 - Assessment and plan (1) DKA (diabetic ketoacidoses) Current Visit: Yes Status: Acute Assessment and plan: Diabetic ketoacidosis has been treated since admission. Patient demonstrates a negative beta hydroxybutyric acid today, glucose is still elevated around 389 with an anion gap of 20. There is concern that there may be a possible secondary RTA, secondary acidosis may be respiratory. Bicarbonate is 15 down from 18 yesterday. - Had lengthy discussion including diet changes, exercise, lifestyle modifications, appropriate glucose monitoring and follow-up. - Placed back on insulin drip for treatment of his anion gap - Sodium bicarbonate 325 mg 3 times a day - Monitor BMP every 6 hours. - Patient may eat as we are not correcting for DKA, yet closing his anion gap. Qualifiers: Diabetes mellitus type: type 2 Diabetes mellitus complication detail: without coma Qualified Code(s): E11.10 - Type 2 diabetes mellitus with ketoacidosis without coma (2) Hypertension Current Visit: Yes Status: Chronic Assessment and plan: Controlled at this time. Currently on Lisinopril and tolerating it. Qualifiers: Hypertension type: essential hypertension Qualified Code(s): I10 - Essential (primary) hypertension (3) TALON (obstructive sleep apnea) Current Visit: Yes Status: Suspected Assessment and plan: Continue CPAP inpatient as patient has known TALON and demonstrates an elevated CO2. (4) Hyperlipidemia Current Visit: Yes Status: Chronic Assessment and plan: Patient was admitted with triglycerides greater than 2000. This is likely a mixed picture of poor diet and genetics. Plan: - Patient should continue on atorvastatin 80 mg by mouth at bedtime, simvastatin should be switched for home medications. - Start Lopid 600mg PO BID, continue inpatient and discharge. Qualifiers: Hyperlipidemia type: mixed hyperlipidemia Qualified Code(s): E78.2 - Mixed hyperlipidemia (5) Morbid obesity Current Visit: Yes Status: Chronic Assessment and plan: Counselling. (6) DVT prophylaxis Current Visit: Yes Status: Acute Assessment and plan: Subcutaneous heparin every 8 hours - Subjective Interval history: Mr. Diaz 32-year-old male was seen and evaluated patient bedside this morning. He states that he is feeling well with out any discomfort at this time. After further discussion regarding his current situation he denies ever having a formal diagnosis of diabetes and was only told prior that he is a prediabetic. Though the time leading up to his current admission he was having frequent urination and demonstrated polydipsia. 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 After further discussion regarding diet, exercise, lifestyle modifications and compliancy with new medications and glucose checks all questions were answered by he and his significant other who is at bedside. - Constitutional Vitals: Temp Pulse Resp BP Pulse Ox 98.2 F 102 17 143/108 95 08/29/17 08:08 08/29/17 08:08 08/29/17 08:08 08/29/17 08:08 08/29/17 08:08 General appearance: Present: cooperative, A&O X 3, morbidly obese, pleasant, answers questions appropriately Exam: Morbidly obese. - Head Head exam: Present: atraumatic, normocephalic - Eye Eye exam: Present: PERRL, conjuntiva pink, sclera anicteric Pupils: Present: PERRL - Neck Neck exam general surgery: Present: supple, trachea midline. Absent: lymphadenopathy - Respiratory Respiratory exam: Present: CTAB. Absent: accessory muscle use, rales, rhonchi, wheezes - Cardiovascular Cardiovascular exam: Present: RRR, +S1, +S2. Absent: diastolic murmur, gallop, rubs, systolic murmur - GI/Abdominal GI/Abdominal exam: Present: normal bowel sounds, soft, no peritoneal signs. Absent: distended, tenderness - Extremities Exam Extremities exam: Present: warm, radial pulses palpable and symmetrical. Absent : calf tenderness, cyanotic, pedal edema - Neurological Exam Neurological exam: Present: CN II-XII intact, oriented X3, no focal deficits. Absent: pronater drift, facial droop, speech deficit - Skin Skin exam: Present: dry, intact Internal Medicine: Result - Labs CBC & Chem 7: 08/29/17 08:40 08/29/17 14:41 - ABG Interpretation ABG results: ABG ABG pH 7.31 pH Units (7.32-7.45) L 08/28/17 04:49 ABG pCO2 55 mmHg (35-45) H 08/28/17 04:49 ABG pO2 92 mmHg (85-104) 08/28/17 04:49 ABG O2 Saturation 96 % (95-98) 08/28/17 04:49 PT/INR, D-dimer PT 11.1 Seconds (9.4-12.1) 08/26/17 12:02 Consult Discharge Plan - Plan Referrals: Pattie Hunter, WALTER [Primary Care Provider] - 09/02/17 1:00 pm <Juve Montero - Last Filed: 08/29/17 17:05> Date of Encounter: 08/29/17 - Assessment and plan (1) DKA (diabetic ketoacidoses) Current Visit: Yes Status: Acute Qualifiers: Diabetes mellitus type: type 2 Diabetes mellitus complication detail: without coma Qualified Code(s): E11.10 - Type 2 diabetes mellitus with ketoacidosis without coma (2) Hyperlipidemia Current Visit: Yes Status: Chronic Qualifiers: Hyperlipidemia type: mixed hyperlipidemia Qualified Code(s): E78.2 - Mixed hyperlipidemia (3) Hypertension Current Visit: Yes Status: Chronic Qualifiers: Hypertension type: essential hypertension Qualified Code(s): I10 - Essential (primary) hypertension (4) Depression Current Visit: Yes Status: Chronic Qualifiers: Depression Type: major depressive disorder Major depression recurrence: recurrent Active/Remission status: currently active Major depression episode severity: mild Qualified Code(s): F33.0 - Major depressive disorder, recurrent, mild (5) TALON (obstructive sleep apnea) Current Visit: Yes Status: Suspected (6) Morbid obesity Current Visit: Yes Status: Chronic - Constitutional Vitals: Temp Pulse Resp BP Pulse Ox 98.2 F 95 16 146/92 96 08/29/17 16:06 08/29/17 16:06 08/29/17 16:06 08/29/17 16:06 08/29/17 16:06 Internal Medicine: Result - Labs CBC & Chem 7: 08/29/17 08:40 08/29/17 14:41 Labs: Short CBC 08/29/17 Range/Units 08:40 WBC 6.0 (4.3-11.1) K/mcL Hgb 14.9 D (12.9-16.9) g/dL Hct 43.4 (37.5-50.1) % Plt Count 266 (140-400) K/mcL BMP 08/29/17 08/29/17 08/29/17 08:40 11:06 14:41 Sodium 131 L 131 L 133 L Potassium 4.4 4.4 4.1 Chloride 98 98 99 Carbon Dioxide 14 L 13 L 15 L BUN 9 10 8 Creatinine 0.90 0.92 0.90 Glucose 350 H 368 H 263 H Calcium 9.0 9.3 9.4 Liver Function 08/29/17 Range/Units 14:41 Albumin 3.3 L (3.5-5.0) g/dL - ABG Interpretation ABG results: ABG ABG pH 7.31 pH Units (7.32-7.45) L 08/28/17 04:49 ABG pCO2 55 mmHg (35-45) H 08/28/17 04:49 ABG pO2 92 mmHg (85-104) 08/28/17 04:49 ABG O2 Saturation 96 % (95-98) 08/28/17 04:49 PT/INR, D-dimer PT 11.1 Seconds (9.4-12.1) 08/26/17 12:02 - Attending Attestation I examined this patient and my medical decision-making was reviewed with the Resident Physician on 08/29/17. I agree with the documented findings, disposition and treatment plan as described except to the extent set forth below. Mr. Diaz has been admitted for acute DKA, new DM and TALON. He remains moderate to high risk due to potential for worsening clinical and respiratory status. Mr Diaz feels OK at this time. He denies CP or SOB. No fever or chills. His serum bicarb is low and anion gap elevated. No symptoms. Exam Alert. Comfortable Heart reg No wheeze Abd soft No edema I/P 1. Elevated anion gap - not acidotic on blood gas. Pt most likely losing bicarb in urine and has chronic respiratory acidosis compounding his acid base status. Placed on insulin drip at this time. 2. DM - most likely will be needing skilled nursing insulin. I stopped the Metformin as there is a potential that he has Type B lactic acidosis 3. TALON - will need bipap Further diagnoses and plan as above.
[2017-08-29 08:54] LABS: Hematocrit 43.4 % (37.5-50.1); Hemoglobin 14.9 g/dL (12.9-16.9); Mean Corpuscular HGB Conc 34.3 g/dL (31.6-35.5); Mean Corpuscular Hemoglobin 29.6 pg (28.0-33.3); Mean Corpuscular Volume 86.3 fL (83.0-100.0); Mean Platelet Volume 10.5 fL (9.4-12.4); Platelet Count 266 K/mcL (140-400); Red Blood Count 5.03 M/mcL (4.19-5.50); Red Cell Distribution Width 12.4 % (11.5-14.5)
[2017-08-29 08:59] LABS: BUN/Creatinine Ratio 10 (6-26); Blood Urea Nitrogen 9 mg/dL (8-26); Carbon Dioxide 14 mEq/L (19-29); Chloride 98 mEq/L (98-109); Glucose 350 mg/dL (70-99); Osmolality,Calculated 285 (280-300); Sodium 131 mEq/L (136-145); eGFR For African Americans > 60 (> 60); eGFR For Non-African Americans > 60 (> 60)
[2017-08-29 09:02] LABS: Magnesium 2.3 mg/dL (1.6-2.6)
[2017-08-29 09:03] LABS: Potassium 4.4 mEq/L (3.5-4.5)
[2017-08-29 11:36] LABS: BUN/Creatinine Ratio 11 (6-26); Blood Urea Nitrogen 10 mg/dL (8-26); Calcium 9.3 mg/dL (8.6-10.8); Carbon Dioxide 13 mEq/L (19-29); Chloride 98 mEq/L (98-109); Glucose 368 mg/dL (70-99); Osmolality,Calculated 286 (280-300); Potassium 4.4 mEq/L (3.5-4.5); eGFR For African Americans > 60 (> 60); eGFR For Non-African Americans > 60 (> 60)
[2017-08-29 11:38] LABS: Sodium 131 mEq/L (136-145)
[2017-08-29] MEDS ORDERED: *HR* Dextrose 50 % in Water (Syg) 50 ML SYRINGE IVP PRN (11:59)
[2017-08-29] MEDS ORDERED: Insulin Regular, Human 100 UNIT/ML IV PRN (11:59)
[2017-08-29] MEDS ORDERED: Insulin Human Regular 100 UNIT in 0.9 % Sodium Chloride 100 ML IVC SCH ×2 (12:00→21:45)
[2017-08-29 12:58] LABS: Beta-Hydroxybutyric Acid 0.23 mmol/L (0.02-0.27)
[2017-08-29 12:59] LABS: VBG HCO3 25 mEq/L (21-27); VBG PCO2 48 mmHg (41-51); VBG PH 7.33 pH Units (7.32-7.42); VBG PO2 53 mmHg (25-50)
[2017-08-29 13:07] LABS: Phosphorous 1.6 mg/dL (2.3-4.7)
[2017-08-29 15:07] LABS: BUN/Creatinine Ratio 9 (6-26); Blood Urea Nitrogen 8 mg/dL (8-26); Calcium 9.4 mg/dL (8.6-10.8); Carbon Dioxide 15 mEq/L (19-29); Chloride 99 mEq/L (98-109); Glucose 263 mg/dL (70-99); Osmolality,Calculated 283 (280-300); Potassium 4.1 mEq/L (3.5-4.5); Sodium 133 mEq/L (136-145); eGFR For African Americans > 60 (> 60); eGFR For Non-African Americans > 60 (> 60)
[2017-08-29 15:09] LABS: Albumin 3.3 g/dL (3.5-5.0)
[2017-08-29 15:10] LABS: Phosphorous 1.9 mg/dL (2.3-4.7)
[2017-08-29] MEDS: Insulin Human Regular 100 UNIT in 0.9 % Sodium Chloride 100 ML IVC SCH ×3 (15:52→23:15)
[2017-08-29 17:58] LABS: BUN/Creatinine Ratio 12 (6-26); Blood Urea Nitrogen 10 mg/dL (8-26); Calcium 9.5 mg/dL (8.6-10.8); Carbon Dioxide 14 mEq/L (19-29); Chloride 97 mEq/L (98-109); Glucose 164 mg/dL (70-99); Osmolality,Calculated 275 (280-300); Sodium 131 mEq/L (136-145); eGFR For African Americans > 60 (> 60); eGFR For Non-African Americans > 60 (> 60)
[2017-08-29 18:00] LABS: Potassium 5.6 mEq/L (3.5-4.5)
[2017-08-29] MEDS ORDERED: 0.9 % Sodium Chloride 1,000 ML ONE (19:33)
[2017-08-29] MEDS: Ibuprofen 400 MG TABLET PO PRN (20:03)
[2017-08-29] MEDS ORDERED: 0.9 % Sodium Chloride w KCl 20 MEQ/1,000 ML MLS IVC PRN (21:39)
[2017-08-29] MEDS ORDERED: D5% in 0.45% NACL 1,000 ML IVC PRN (21:39)
[2017-08-29] MEDS: traZODone 50 MG TABLET PO SCH (22:01)
[2017-08-29 23:05] LABS: BUN/Creatinine Ratio 12 (6-26); Blood Urea Nitrogen 11 mg/dL (8-26); Calcium 9.3 mg/dL (8.6-10.8); Carbon Dioxide 14 mEq/L (19-29); Chloride 98 mEq/L (98-109); Glucose 214 mg/dL (70-99); Osmolality,Calculated 280 (280-300); Sodium 132 mEq/L (136-145); eGFR For African Americans > 60 (> 60); eGFR For Non-African Americans > 60 (> 60)
[2017-08-29 23:06] LABS: Potassium 4.4 mEq/L (3.5-4.5)
[2017-08-29] MEDS: 0.9 % Sodium Chloride 1,000 ML IVC SCH (23:20)
[2017-08-30] MEDS: Insulin Human Regular 100 UNIT in 0.9 % Sodium Chloride 100 ML IVC SCH ×3 (01:27→09:38)
[2017-08-30] MEDS: 0.9 % Sodium Chloride 1,000 ML IVC SCH ×4 (05:08→10:30)
[2017-08-30] MEDS: D5% in 0.45% NACL w KCl 20 MEQ/1,000 ML MLS IVC PRN ×2 (05:09→09:42)
[2017-08-30 06:49] LABS: Basophils % 0.7 %; Eosinophils # 0.2 K/mcL (0.0-0.6); Eosinophils % 2.6 %; Hematocrit 40.4 % (37.5-50.1); Immature Granulocytes % 1.4 % (0-4); Lymphocytes % 33.8 %; Mean Corpuscular HGB Conc 34.7 g/dL (31.6-35.5); Mean Corpuscular Hemoglobin 29.6 pg (28.0-33.3); Mean Corpuscular Volume 85.4 fL (83.0-100.0); Mean Platelet Volume 10.4 fL (9.4-12.4); Monocytes # 0.4 K/mcL (0.0-1.3); Monocytes % 6.5 %; Neutrophils # 3.2 K/mcL (1.6-8.9); Nucleated Red Blood Cells 0.3 /100 WBC (0); Platelet Count 241 K/mcL (140-400); Red Blood Count 4.73 M/mcL (4.19-5.50); Red Cell Distribution Width 12.4 % (11.5-14.5)
[2017-08-30 06:55] LABS: BUN/Creatinine Ratio 13 (6-26); Blood Urea Nitrogen 10 mg/dL (8-26); Calcium 8.9 mg/dL (8.6-10.8); Carbon Dioxide 21 mEq/L (19-29); Chloride 100 mEq/L (98-109); Glucose 183 mg/dL (70-99); Osmolality,Calculated 282 (280-300); Potassium 3.4 mEq/L (3.5-4.5); Sodium 134 mEq/L (136-145); eGFR For African Americans > 60 (> 60); eGFR For Non-African Americans > 60 (> 60)
[2017-08-30] MEDS ORDERED: Potassium Chloride Elixir 20 MEQ/15 ML UDC PO ONE (08:00)
[2017-08-30] MEDS: *HR* Heparin 5,000 UNIT/ML VIAL SQ SCH ×2 (08:32→17:47)
[2017-08-30] MEDS: Lisinopril 20 MG TABLET PO SCH (08:32)
[2017-08-30] MEDS: Ibuprofen 400 MG TABLET PO PRN (08:43)
[2017-08-30 10:48] LABS: BUN/Creatinine Ratio 6 (6-26); Calcium 8.7 mg/dL (8.6-10.8); Carbon Dioxide 19 mEq/L (19-29); Chloride 102 mEq/L (98-109); Glucose 190 mg/dL (70-99); Osmolality,Calculated 282 (280-300); Potassium 4.3 mEq/L (3.5-4.5); Sodium 135 mEq/L (136-145); eGFR For African Americans > 60 (> 60); eGFR For Non-African Americans > 60 (> 60)
[2017-08-30 10:49] LABS: Blood Urea Nitrogen 5 mg/dL (8-26)
[2017-08-30] MEDS ORDERED: Insulin NPH/REG 70/30 100 UNIT/ML (x5UNIT) SQ SCH ×2 (12:00→18:00)
--- NOTE | 2017-08-30 13:45 | Discharge Summary ---
<Juan Pena - Last Filed: 08/30/17 15:45> Date of Encounter: 08/30/17 Time of Encounter: 13:39 - Discharge Diagnosis (1) DKA (diabetic ketoacidoses) Priority: Primary Status: Acute Qualifiers: Diabetes mellitus type: type 2 Diabetes mellitus complication detail: without coma Qualified Code(s): E11.10 - Type 2 diabetes mellitus with ketoacidosis without coma (2) Hypertension Priority: Primary Status: Chronic Qualifiers: Hypertension type: essential hypertension Qualified Code(s): I10 - Essential (primary) hypertension (3) TALON (obstructive sleep apnea) Priority: Secondary Status: Suspected (4) Hyperlipidemia Priority: Primary Status: Chronic Qualifiers: Hyperlipidemia type: mixed hyperlipidemia Qualified Code(s): E78.2 - Mixed hyperlipidemia (5) Morbid obesity Priority: Secondary Status: Chronic (6) DVT prophylaxis Priority: Secondary Status: Acute - Discharge Medications Prescriptions: Atorvastatin [Lipitor] 80 mg PO HS #30 tablet Gemfibrozil [Lopid] 600 mg PO BIDAC #30 tablet Insulin NPH/REG 70/30 (HUMAN) [Humulin 70/30 Vial] 20 unit SQ QPM #4 vial Insulin NPH/REG 70/30 (HUMAN) [Humulin 70/30 Vial] 30 unit SQ QAM #6 vial Sodium Bicarbonate 325 mg PO TID #30 tablet Home Medications: Ibuprofen [Motrin] 200 mg PO Q4HR PRN 08/26/17 [History] Lisinopril [Zestril] 20 mg PO DAILY 08/26/17 [History] Omeprazole [PriLOSEC] 40 mg PO DAILY 08/26/17 [History] Sertraline [Zoloft] 50 mg PO DAILY 08/26/17 [History] Trazodone HCl 150 mg PO HS 08/26/17 [History] hydrOXYzine HCl [Hydroxyzine HCl] 50 mg PO HS PRN 08/26/17 [History] Atorvastatin [Lipitor] 80 mg PO HS #30 tablet 08/30/17 [Rx] Gemfibrozil [Lopid] 600 mg PO BIDAC #30 tablet 08/30/17 [Rx] Insulin NPH/REG 70/30 (HUMAN) [Humulin 70/30 Vial] 20 unit SQ QPM #4 vial [Rx] Insulin NPH/REG 70/30 (HUMAN) [Humulin 70/30 Vial] 30 unit SQ QAM #6 vial [Rx] Sodium Bicarbonate 325 mg PO TID #30 tablet 08/30/17 [Rx] Allergies/Adverse Reactions: 3 Allergy/AdvReac Type Severity Reaction Status Date / Time No Known Allergies Allergy Verified 08/26/17 16:44 Date of admission: 08/26/17 20:19 Primary care physician: Pattie Hunter CNP Consults: 08/30/17 11:59 consult to retail helper [Consult to Nutrition] [CONS] Routine Comment: Consulting Provider: NUTRITION Reason for Dietary Consult: Diet Education Other:: New diabetic with elevated triglycerides Discharging clinician: Juan Pena Anticipated date of discharge: 08/30/17 - Patient Status Disposition: Home, Self-Care Condition: Fair Functional capacity at discharge: independent ambulation Overall status at discharge: patient is progressing back to baseline - Discharge Instructions Instructions: Diabetes Mellitus Type 2 in Adults (DC) Follow Up With: Pattie Hunter CNP [Primary Care Provider] - 09/02/17 1:00 pm Holly Baxter MD [Partnered Physician] - Additional Instructions: 1. Follow-up with your primary care provider in the next 3-5 days 2. Follow-up with endocrinology post discharge. 2. Take all prescriptions as prescribed, any concerns or questions contact her primary care provider. 3. Return to the emergency department if: - Diet and Activity Activity: increase activity as tolerated Diet: diabetic diet, low fat, low cholesterol, low salt diet Interval History: Mr. Diaz 32-year-old male with known past medical history of hyperlipidemia , prediabetic, TALON and depression was admitted to the hospital after presenting with generalized weakness and fatigue for roughly 2 days found IV and diabetic ketoacidosis. He was initially treated for DKA, triglycerides are 2348, hemoglobin A1c was 11.3. His hyperglycemia improved and he consistently maintained a anion gap. After initially switching him to subcutaneous insulin he became more hyperglycemic requiring placement back on insulin drip. He is started on oral bicarbonate as his bicarbonate drops to 13. There is suspicion that this is a mixed acidosis likely secondary to TALON, DKA and potential RTA. His electrolytes were corrected throughout his inpatient stay. He maintained on insulin drip overnight and on 08/30/2017 his metabolic acidosis significantly improved, he was taken off IV insulin and placed on subcutaneous insulin 70/30. During his inpatient stay there a significant discussion regarding dietary changes, compliancy with medications and follow-up with PCP and endocrinology. He was placed on 7030 insulin as he currently does not have insurance and is self-pay. He may benefit from Lantus or Levemir long-acting. He was evaluated on 08/30/2017 and deemed stable for discharge home with subcutaneous insulin, addition of Lopid, switched his simvastatin to atorvastatin. Hospital course: Mr. Diaz is a 32 year old male - Time Spent with Patient Total time spent providing and/or coordinating discharge services: - Constitutional Vitals: Temp Pulse Resp BP Pulse Ox 97.6 F 91 16 130/69 98 08/30/17 10:56 08/30/17 10:56 08/30/17 10:56 08/30/17 10:56 08/30/17 10:56 General appearance: Present: cooperative, A&O X 3, morbidly obese, pleasant, answers questions appropriately Exam: obese - Head Head exam: Present: atraumatic, normocephalic - Eye Eye exam: Present: PERRL, conjuntiva pink, sclera anicteric Pupils: Present: PERRL - Neck Neck exam general surgery: Present: supple, trachea midline. Absent: lymphadenopathy - Respiratory Respiratory exam: Present: CTAB. Absent: accessory muscle use, rales, rhonchi, wheezes - Cardiovascular Cardiovascular exam: Present: RRR, +S1, +S2. Absent: diastolic murmur, gallop, rubs, systolic murmur - GI/Abdominal GI/Abdominal exam: Present: normal bowel sounds, soft, no peritoneal signs. Absent: distended, tenderness - Extremities Exam Extremities exam: Present: warm, radial pulses palpable and symmetrical. Absent : calf tenderness, cyanotic, pedal edema - Neurological Exam Neurological exam: Present: CN II-XII intact, oriented X3, no focal deficits. Absent: pronater drift, facial droop, speech deficit - Skin Skin exam: Present: dry, intact <Juve Montero - Last Filed: 08/30/17 17:30> Date of Encounter: 08/30/17 - Discharge Diagnosis (1) DKA (diabetic ketoacidoses) Status: Acute Qualifiers: Diabetes mellitus type: type 1 Diabetes mellitus complication detail: without coma Qualified Code(s): E10.10 - Type 1 diabetes mellitus with ketoacidosis without coma (2) Hyperlipidemia Status: Chronic Qualifiers: Hyperlipidemia type: mixed hyperlipidemia Qualified Code(s): E78.2 - Mixed hyperlipidemia (3) Hypertension Priority: Secondary Status: Chronic Qualifiers: Hypertension type: essential hypertension Qualified Code(s): I10 - Essential (primary) hypertension (4) Depression Priority: Secondary Status: Chronic Qualifiers: Depression Type: major depressive disorder Major depression recurrence: recurrent Active/Remission status: currently active Major depression episode severity: mild Qualified Code(s): F33.0 - Major depressive disorder, recurrent, mild (5) TALON (obstructive sleep apnea) Status: Suspected Comments: Has been using CPAP at home. Has hypercarbia here and will need to be on bipap in the future. (6) Morbid obesity Status: Chronic (7) RTA (renal tubular acidosis) Priority: Secondary Status: Suspected Comments: Suspect he has RTA with bicarb wasting. Placed on po bicarbonate and to have followed as outpatient. - Notes to Outpatient Provider Please see the attending attestation for information Date of admission: 08/26/17 20:19 Primary care physician: Pattie Hunter CNP Consults: 08/30/17 11:59 consult to retail helper [Consult to Nutrition] [CONS] Routine Comment: Consulting Provider: NUTRITION Reason for Dietary Consult: Diet Education Other:: New diabetic with elevated triglycerides Hospital course: Mr. Diaz is a 32 year old male - Time Spent with Patient Total time spent providing and/or coordinating discharge services: 40min - Constitutional Vitals: Temp Pulse Resp BP Pulse Ox 97.7 F 89 15 158/96 97 08/30/17 16:21 08/30/17 16:21 08/30/17 16:21 08/30/17 16:21 08/30/17 16:21 - Attending Attestation I examined this patient and my medical decision-making was reviewed with the Resident Physician on 08/30/17. I agree with the documented findings, disposition and treatment plan as described except to the extent set forth below. Mr Diaz has been admitted for acute DKA presumed due to type 1 diabetes adult onset (antibodies pending). He is off drip and blood sugars fairly controlled. He is to go home on Novolin 70/30 twice daily with accuchecks. He most likely has RTA and will also be discharged on bicarb PO as this has helped his acid base status. He is afebrile with stable vitals and ready for discharge home. Exam Alert. Comfortable Mucus membranes dry Heart reg No wheeze Abd soft No edema Plan D/C home today Novolin 70/30 BID (30 units AM, 20 units PM) Accuchecks ac and hs and take to PCP Antibodies are pending Triglycerides markedly elevated - to go on Lipitor and Lopid Most likely has RTA as well - on PO bicarb Needs bipap but will not be able to get till has medicaid again - information sent. Will continue to use CPAP at home as before until then. Diet education given. Needs weight loss.
[2017-08-30] MEDS ORDERED: Insulin LISPRO 300 UNITS/3 ML VIAL SQ SCH ×2 (16:30→21:00)
[2017-08-30 16:35] VITALS: BP 158/96
[2017-08-30] MEDS ORDERED: FLUARIX QUAD 2017-18 36MOS UP/PF 0.5 ML SYRINGE IM ONE (17:52)
[2017-08-31 08:44] LABS: Islet Cell Antibody, IgG <1:4 (<1:4)
[2017-09-02 07:23] LABS: Insulin Antibody <0.4 U/mL (0.0-0.4)
== END 2017-08-30 18:20 | disposition home or self-care (01) | DRG 420 ==
LOC: EMEROO 16:22 → 2NNU 16:22
PROVIDERS: ADMIT Family Medicine; ATTEND Internal Medicine